=== PATIENT | female | born 1950 | race Asian ===

== ENCOUNTER 2017-06-27 08:32 | Day surgery (SDC) | payer MEDICARE ==
[2017-06-27] MEDS ORDERED: ASPI-515 PO (09:24)
[2017-06-27] MEDS ORDERED: MULT200T4 PO (09:24)
[2017-06-27] MEDS ORDERED: CART1TAB5 PO (09:24)
[2017-06-27] MEDS ORDERED: L.AC1CAP6 PO (09:24)
[2017-06-27] MEDS ORDERED: PROPOFOL 10 MG/ML, 20ML ONE (10:25)
== END 2017-06-27 12:30 | disposition home or self-care (01) ==
LOC: CACL 08:32
PROVIDERS: ATTEND Internal Medicine Cardiovascular Disease
DX: I34.1 Nonrheumatic mitral (valve) prolapse (principal); I34.0 Nonrheumatic mitral (valve) insufficiency; I08.0 Rheumatic disorders of both mitral and aortic valves; I35.1 Nonrheumatic aortic (valve) insufficiency; Z79.82 Long term (current) use of aspirin
CPT/HCPCS: 93312; 93325; J2704

== ENCOUNTER 2017-07-19 08:31 | Day surgery (SDC) | payer MEDICARE ==
[~2017-07-19] VITALS: Ht 160 cm; Wt 46.4 kg
[~2017-07-19 08:31] MED LIST: ASPI-515 PO; CART1TAB5 PO; L.AC1CAP6 PO; MULT200T4 PO
[2017-07-19] MEDS ORDERED: SODIUM CHLORIDE 0.9% 1,000 ML IV ONE (10:35)
[2017-07-19 10:39] VITALS: BP 140/70
[2017-07-19] MEDS ORDERED: UBID100C41 PO (10:47)
[2017-07-19] MEDS ORDERED: VERAPAMIL 2.5 MG/ML, 2ML ONE (11:06)
[2017-07-19] MEDS ORDERED: FENTANYL PF 100 MCG/2ML ONE (11:06)
[2017-07-19] MEDS ORDERED: LIDOCAINE 2%, 20ML ONE (11:06)
[2017-07-19] MEDS ORDERED: MIDAZOLAM 1 MG/ML, 5ML ONE (11:06)
[2017-07-19] MEDS ORDERED: NITROGLYCERIN 5 MG/ML, 10ML ONE (11:06)
[2017-07-19] MEDS ORDERED: HEPARIN 1,000 UNITS/ML, 10ML ONE (11:06)
[2017-07-19] MEDS ORDERED: CARTILAGE PO SCH (13:00)
[2017-07-19] MEDS ORDERED: PARACASEI B LACTIS PO SCH (13:00)
[2017-07-19] MEDS ORDERED: [UNRECOGNIZED DRUG - OTHER] PO SCH (13:00)
[2017-07-19] MEDS ORDERED: BOR PO SCH (13:00)
[2017-07-19] MEDS ORDERED: HYALUR PO SCH (13:00)
[2017-07-19] MEDS ORDERED: TEMPLATE NON-FORMULARY MED. (Ubidecarenone** (Co Q-10**) 100 MG) PO SCH (13:00)
[2017-07-19] MEDS ORDERED: ACIDOPH PO SCH (13:00)
[2017-07-19] MEDS ORDERED: MULTIVIT CALC MINS PO SCH (13:00)
[2017-07-19] MEDS ORDERED: COLLAGEN PO SCH (13:00)
[2017-07-19] MEDS ORDERED: FOLIC ACID PO SCH (13:00)
[2017-07-19] MEDS ORDERED: ASPIRIN 81 MG TABLET EC PO SCH (13:00)
== END 2017-07-19 14:53 ==
LOC: CACL 08:31
PROVIDERS: ATTEND Internal Medicine Cardiovascular Disease
DX: I25.10 Atherosclerotic heart disease of native coronary artery without angina pectoris (principal); E78.5 Hyperlipidemia, unspecified; Z79.82 Long term (current) use of aspirin
CPT/HCPCS: 93458; 99156; 99157; C1769; C1894; J1644; J2250; J3010; J3490; Q9967